=== PATIENT | female | born 1985 | race Caucasian/White ===

== ENCOUNTER 2019-04-29 01:18 | Emergency (ER) | payer SELFPAY ==
--- NOTE | 2019-04-29 01:30 | EDM.PDOC ---
ED HPI GENERAL MEDICAL PROBLEM - General Chief Complaint: General Stated Complaint: MEDICAL CLEARANCE Time Seen by Provider: 04/29/19 01:25 Source of Information: Reports: Patient History Limitations: Reports: No Limitations - History of Present Illness INITIAL COMMENTS - FREE TEXT/NARRATIVE: Patient is 34 a female no past medical history presenting with police for medical clearance. Patient does not have any medical complaints at this time. Patient refuses any examination. Patient states she was arrested for voicing her opinion and is upset with police at this. On further questioning, the patient denies taking any medications. Patient states that she did drink a couple beers but that she is not intoxicated. She denies any drug use. Pmhx: None Pshx: None Smoking history? Occasional Etoh use? none Drug use? none Patient refused review of systems I have reviewed the triage vital signs Const: Well nourished, well developed, appears stated age. No slurring of speech. No acute distress. Eyes: no conjunctival injection HENT: Head is normocephalic nontraumatic RESP: Unlabored respiratory effort MSK: No gross deformities appreciated Skin: Warm, dry. No rashes Neuro: Demonstrates steady gait without any ataxia. Moving all 4 extremities equally. Psych: Patient is mildly upset, but not demonstrate any abnormalities suggestive of psychosis. She demonstrates normal speech and clear linear thought pattern. Assessment and plan: Patient is a 34-year-old female here for medical clearance. Patient is refusing vital signs and physical exam. Based on my assessment and talking with her I do not believe that she is clinically intoxicated and may be upset about being arrested but not demonstrating any evidence of psychosis or any psychological illnesses. Patient informed if she changed her mind and would like to be evaluated by physician she can do so at any point. Patient states she does not need any medical treatment with just like to go to [facility]. Given that patient is not exhibiting any evidence of altered mental status or intoxication, no further medical evaluation be performed at this point. All questions were addressed and answered. Patient agrees with plan - Related Data Allergies Allergy/AdvReac Type Severity Reaction Status Date / Time Unable to Assess Allergy Unverified 04/29/19 01:25 Home Meds: Home Meds . [Unable to Verify Home Med List] 04/29/19 [History] ED ROS GENERAL - Review of Systems Review Of Systems: See Below ED EXAM, GENERAL - Physical Exam Exam: See Below Departure - Departure Time of Disposition: 01:30 Disposition: Home, Self-Care 01 Clinical Impression: Encounter for medical screening examination - Discharge Information Referrals: PCP,None [Primary Care Provider] - Forms: ED Department Discharge Additional Instructions: The following information is given to patients seen in the emergency department who are being discharged to home. This information is to outline your options for follow-up care. We provide all patients seen in our emergency department with a follow-up referral. The need for follow-up, as well as the timing and circumstances, are variable depending upon the specifics of your emergency department visit. If you don't have a primary care physician on staff, we will provide you with a referral. We always advise you to contact your personal physician following an emergency department visit to inform them of the circumstance of the visit and for follow-up with them and/or the need for any referrals to a consulting specialist. The emergency department will also refer you to a specialist when appropriate. This referral assures that you have the opportunity for follow-up care with a specialist. All of these measure are taken in an effort to provide you with optimal care, which includes your follow-up. Under all circumstances we always encourage you to contact your private physician who remains a resource for coordinating your care. When calling for follow-up care, please make the office aware that this follow-up is from your recent emergency room visit. If for any reason you are refused follow-up, please contact the [facility] Emergency Department at and asked to speak to the emergency department charge nurse.
== END 2019-04-29 01:35 ==
LOC: MW.ED 01:18
DX: Z02.89 Encounter for other administrative examinations (principal)
CPT/HCPCS: 99283